=== PATIENT | male | born 1945 | race Caucasian/White ===

== ENCOUNTER 2016-07-13 08:47 | Inpatient (IN) | payer OTHER ==
[~2016-07-13] VITALS: Ht 175.3 cm; Wt 56.8 kg
[~2016-07-13 08:47] MED LIST: ALLEGRA-D 241 TABLET PO; AMBIEN10 MG; AMBIEN5 MG PO; AUGMENTIN875 MG PO; BENTYL10 MG PO; CORTIZONE-1028 GM TP; DOXYCYCLINE HY100 MG PO; DURAGESIC100 MCG TD; DURAGESIC25 MCG TD; DURAGESIC50 MCG TD; ENTOCORT EC3 MG PO; FLEXERIL10 MG PO; Flagyl PO; Flexeril PO; GLYCOTROL CAPS1 EACH PO; HYDROCODON-ACE1 EAC7 PO; K-SOL40 MEQ/15 PO; MORPHINE CON20 MG/M1 PO; OXYCODONE HCL10 MG PO; OXYCONTIN40 MG PO; PENTASA250 MG PO; POTASSIUM CHLO20 ME2 PO; Protonix PO; ULTRAM50 MG PO; VIBRAMYCIN100 MG PO; VICODIN HP 10-1 EACH PO; VITAMIN B-6200 MG PO; VITAMIN B-650 M1 PO; VITAMIN D31000 UNI2 PO; VITAMIN D31000 UNIT PO; VITAMIN E1000 UNI1 PO; Vicodin,Norco 5/325 PO; ZANTAC150 MG PO; [UNRECOGNIZED DRUG - OTHER] PO; [UNRECOGNIZED DRUG - OTHER] TP
[2016-07-13 09:39] LABS: EOSINOPHIL (%) 0 % (0-5); HEMATOCRIT 36.6 % (38.0-50.0); IMMATURE GRANULOCYTE (%) 0.4 % (0.0-0.7); INSTRUMENT ABS NEUTROPHIL CT 1.8 K/uL; LYMPHOCYTE COUNT 0.8 K/uL (1.0-2.8); MCH 34.2 PG (29.0-34.0); MCHC 34.7 G/DL (30.0-36.0); MEAN PLAT.VOLUME 8.5 uM^3 (9.0-12.4); MONOCYTE (%) 1.9 % (3-12); MONOCYTE COUNT 0.1 K/uL (0-0.8); NEUTROPHIL (%) 67.2 % (45-76); NEUTROPHIL COUNT 1.8 K/uL (1.8-6.4); PLATELET COUNT 213 K/uL (156-360); RBC DIS.WIDTH-CV 13.2 % (11.8-14.6); RBC DIS.WIDTH-SD 47.5 % (39-53); RED BLOOD COUNT 3.71 M/uL (4.00-5.50)
[2016-07-13 09:41] LABS: MCV 98.7 FL (86-99); WHITE BLOOD COUNT 2.6 K/uL (4.1-10.2)
[2016-07-13 09:47] LABS: CHLORIDE 99 mEq/L (99-109); POTASSIUM 3.9 mEq/L (3.7-5.4); SODIUM 139 mEq/L (136-147)
[2016-07-13 09:50] LABS: GLUCOSE 133 mg/dL (70-99)
[2016-07-13 09:51] LABS: ANION GAP 12 MEQ/L (2-14)
[2016-07-13 09:52] LABS: TOTAL BILIRUBIN 1.4 mg/dL (0.0-1.0)
[2016-07-13 09:53] LABS: ALKALINE PHOSPHATASE 79 IU/L (3-129); GFR ESTIMATE (CALCULATED) > 59 mL/min/
[2016-07-13 09:54] LABS: UREA NITROGEN (BUN) 34 mg/dL (9-23)
[2016-07-13 11:30] LABS: TROP-I INTERPRETATION NEGATIVE; TROPONIN-I < 0.01 ng/mL (0.0-0.30)
[2016-07-13] MEDS ORDERED: DURAGESIC50 MCG TD (12:33)
[2016-07-13] MEDS ORDERED: OXYCONTIN20 MG PO (12:36)
[2016-07-13] MEDS ORDERED: PHENERGAN25 MG PR (12:37)
[2016-07-13 13:22] VITALS: BP 124/84
[2016-07-13 18:29] VITALS: BP 122/72
[2016-07-13 20:28] VITALS: BP 101/68
[2016-07-13 22:54] LABS: INTER. NORMALIZED RATIO 1.3; PROTHROMBIN TIME 13.4 (9.2-11.2); PTT 24.2 (25-32)
[2016-07-13 23:24] VITALS: BP 101/60
[2016-07-14 03:35] VITALS: BP 102/70
[2016-07-14 06:29] LABS: HEMATOCRIT 28.8 % (38.0-50.0); MCH 33.9 PG (29.0-34.0); MCHC 33.7 G/DL (30.0-36.0); MCV 100.7 FL (86-99); MEAN PLAT.VOLUME 9.1 uM^3 (9.0-12.4); NRBC (%) 0.4 /100 WBC (0-0); PLATELET COUNT 169 K/uL (156-360); RBC DIS.WIDTH-CV 13.2 % (11.8-14.6); RBC DIS.WIDTH-SD 48.9 % (39-53)
[2016-07-14 06:31] LABS: ALKALINE PHOSPHATASE 54 IU/L (3-129); ANION GAP 8 MEQ/L (2-14); CHLORIDE 104 MEQ/L (99-109); GFR ESTIMATE (CALCULATED) > 59 mL/min/; GLUCOSE 101 mg/dL (70-99); POTASSIUM 3.3 MEQ/L (3.7-5.4); SAMPLE HEMOLYSIS CHECK 0; SAMPLE ICTERIC CHECK 0; SAMPLE LIPEMIA CHECK 0; SODIUM 140 MEQ/L (136-147); TOTAL BILIRUBIN 0.5 MG/DL (0.0-1.0); UREA NITROGEN (BUN) 28 mg/dL (9-23)
[2016-07-14 06:37] LABS: RED BLOOD COUNT 2.86 M/uL (4.00-5.50); WHITE BLOOD COUNT 4.7 K/uL (4.1-10.2)
[2016-07-14 07:50] VITALS: BP 103/62
[2016-07-14 12:01] VITALS: BP 108/75
[2016-07-14 16:02] VITALS: BP 119/74
[2016-07-15] VITALS (8 sets, daily range): BP systolic 96–154; BP diastolic 57–90
[2016-07-15 06:30] LABS: EOSINOPHIL (%) 0.5 % (0-5); HEMATOCRIT 26.5 % (38.0-50.0); IMMATURE GRANULOCYTE (%) 3.8 % (0.0-0.7); IMMATURE GRANULOCYTE COUNT 0.3 K/uL; INSTRUMENT ABS NEUTROPHIL CT 6.2 K/uL; LYMPHOCYTE COUNT 1.5 K/uL (1.0-2.8); MCH 33.5 PG (29.0-34.0); MCHC 33.6 G/DL (30.0-36.0); MCV 99.6 FL (86-99); MEAN PLAT.VOLUME 8.9 uM^3 (9.0-12.4); MONOCYTE (%) 1.5 % (3-12); MONOCYTE COUNT 0.1 K/uL (0-0.8); NEUTROPHIL (%) 75.9 % (45-76); NEUTROPHIL COUNT 6.2 K/uL (1.8-6.4); PLATELET COUNT 129 K/uL (156-360); RBC DIS.WIDTH-CV 13.3 % (11.8-14.6); RED BLOOD COUNT 2.66 M/uL (4.00-5.50)
[2016-07-15 06:33] LABS: ANION GAP 5 MEQ/L (2-14); CHLORIDE 100 MEQ/L (99-109); GFR ESTIMATE (CALCULATED) > 59 mL/min/; GLUCOSE 104 mg/dL (70-99); POTASSIUM 3.5 MEQ/L (3.7-5.4); SAMPLE HEMOLYSIS CHECK 0; SAMPLE ICTERIC CHECK 0; SAMPLE LIPEMIA CHECK 0; SODIUM 133 MEQ/L (136-147); UREA NITROGEN (BUN) 17 mg/dL (9-23)
[2016-07-15 06:41] LABS: WHITE BLOOD COUNT 8.1 K/uL (4.1-10.2)
[2016-07-16 00:22] VITALS: BP 85/53
[2016-07-16 04:16] VITALS: BP 102/56
[2016-07-16 06:22] LABS: HEMATOCRIT 28.8 % (38.0-50.0); MCHC 34.4 G/DL (30.0-36.0); MEAN PLAT.VOLUME 8.7 uM^3 (9.0-12.4); PLATELET COUNT 119 K/uL (156-360); RBC DIS.WIDTH-CV 13.2 % (11.8-14.6); RBC DIS.WIDTH-SD 47.5 % (39-53); RED BLOOD COUNT 2.91 M/uL (4.00-5.50)
[2016-07-16 06:24] LABS: ANION GAP 6 MEQ/L (2-14); CHLORIDE 105 MEQ/L (99-109); GFR ESTIMATE (CALCULATED) > 59 mL/min/; GLUCOSE 110 mg/dL (70-99); POTASSIUM 3.4 MEQ/L (3.7-5.4); SAMPLE HEMOLYSIS CHECK 0; SAMPLE ICTERIC CHECK 0; SAMPLE LIPEMIA CHECK 0; SODIUM 137 MEQ/L (136-147); UREA NITROGEN (BUN) 10 mg/dL (9-23)
[2016-07-16 06:43] LABS: WHITE BLOOD COUNT 3.5 K/uL (4.1-10.2)
[2016-07-16 07:20] VITALS: BP 96/62
[2016-07-16 13:00] VITALS: BP 117/76
[2016-07-16 17:25] VITALS: BP 117/76
[2016-07-16 20:11] VITALS: BP 109/73
[2016-07-17 01:02] VITALS: BP 100/66
[2016-07-17 06:12] VITALS: BP 102/59
[2016-07-17 07:56] LABS: EOSINOPHIL (%) 2.1 % (0-5); EOSINOPHIL COUNT 0.1 K/uL (0-0.3); HEMATOCRIT 27.2 % (38.0-50.0); IMMATURE GRANULOCYTE (%) 0.4 % (0.0-0.7); INSTRUMENT ABS NEUTROPHIL CT 1.3 K/uL; LYMPHOCYTE COUNT 0.8 K/uL (1.0-2.8); MCH 33.5 PG (29.0-34.0); MCHC 33.5 G/DL (30.0-36.0); MEAN PLAT.VOLUME 9.3 uM^3 (9.0-12.4); MONOCYTE (%) 10.4 % (3-12); MONOCYTE COUNT 0.3 K/uL (0-0.8); NEUTROPHIL (%) 55.4 % (45-76); NEUTROPHIL COUNT 1.3 K/uL (1.8-6.4); PLATELET COUNT 106 K/uL (156-360); RBC DIS.WIDTH-CV 13.3 % (11.8-14.6); RBC DIS.WIDTH-SD 48.2 % (39-53); RED BLOOD COUNT 2.72 M/uL (4.00-5.50)
[2016-07-17 08:06] LABS: WHITE BLOOD COUNT 2.4 K/uL (4.1-10.2)
[2016-07-17 08:39] VITALS: BP 89/58
[2016-07-17 11:37] VITALS: BP 91/54
[2016-07-17 15:38] VITALS: BP 100/71
[2016-07-17 19:58] VITALS: BP 102/60
[2016-07-18 00:30] VITALS: BP 107/67
[2016-07-18 04:20] VITALS: BP 83/50
[2016-07-18 04:30] VITALS: BP 111/64
[2016-07-18 07:42] VITALS: BP 97/60
[2016-07-18] MEDS ORDERED: LORAZEPAM0.5 MG PO ×2 (09:15→10:45)
[2016-07-18] MEDS ORDERED: ZOFRAN4 MG PO (09:15)
[2016-07-18] MEDS ORDERED: LEVBID0.375 MG PO (09:20)
[2016-07-18] MEDS ORDERED: MOXIFLOXACIN H400 MG PO (09:21)
[2016-07-18] MEDS ORDERED: OXYCONTIN20 MG PO ×2 (10:43→10:45)
[2016-07-18] MEDS ORDERED: FENTANYL1 EAC3 TD ×2 (10:43→10:45)
== END 2016-07-18 16:09 | disposition hospice, home (50) | DRG 393 ==
LOC: EME 08:47 → EDOF 12:29 → 5WEST 13:10
PROVIDERS: Emergency Medicine; Family Medicine; Hospitalist; Internal Medicine; Nurse Practitioner Family
DX: K91.89 Other postprocedural complications and disorders of digestive system (principal); K65.9 Peritonitis, unspecified; C18.9 Malignant neoplasm of colon, unspecified; R18.0 Malignant ascites; E46 Unspecified protein-calorie malnutrition; C78.6 Secondary malignant neoplasm of retroperitoneum and peritoneum; D61.818 Other pancytopenia; Z68.1 Body mass index [BMI] 19.9 or less, adult; K56.60 Unspecified intestinal obstruction; R11.2 Nausea with vomiting, unspecified; L89.152 Pressure ulcer of sacral region, stage 2; R56.9 Unspecified convulsions; D69.6 Thrombocytopenia, unspecified; R53.1 Weakness; E87.6 Hypokalemia; E86.0 Dehydration; E88.09 Other disorders of plasma-protein metabolism, not elsewhere classified; E77.8 Other disorders of glycoprotein metabolism; E83.51 Hypocalcemia; Z88.2 Allergy status to sulfonamides; Z90.89 Acquired absence of other organs; Z92.21 Personal history of antineoplastic chemotherapy; R91.8 Other nonspecific abnormal finding of lung field; R62.7 Adult failure to thrive; Z51.5 Encounter for palliative care; Z66 Do not resuscitate
CPT/HCPCS: 70450; 71010; 74177; 80048; 80053; 81003; 82945; 83615 91; 83986 90; 84157; 84484; 85025; 85027; 85610; 85730; 86850; 86900; 86901; 87070; 87205; 89051; 93005; 95819; 96361; 96374; 99281; 99285; J1335; J1644; J2060; J2405; J2543; J3480; J7030; J7050; S0028